=== PATIENT | female | born 2005 | race Two or more races ===

== ENCOUNTER 2024-09-09 22:07 | Emergency (ER) | payer OTHER ==
[~2024-09-09] VITALS: Ht 162.6 cm; Wt 132.4 kg
[2024-09-09] MEDS ORDERED: METOCLOPRAMIDE HCL 5 MG/ML VIAL IV STA (22:51)
[2024-09-09] MEDS ORDERED: 0.9 % SODIUM CHLORIDE 500 ML IV STA (22:51)
[2024-09-09] MEDS ORDERED: KETOROLAC TROMETHAMINE 30 MG VIAL IV STA (22:52)
[2024-09-09] MEDS ORDERED: METOCLOPRAMIDE HCL 5 MG/ML VIAL ONE (23:31)
[2024-09-09] MEDS ORDERED: KETOROLAC TROMETHAMINE 30 MG VIAL ONE (23:33)
== END 2024-09-10 01:46 | disposition home or self-care (01) ==
LOC: ER 22:10 → EMR PED 22:10
DX: G43.909 Migraine, unspecified, not intractable, without status migrainosus (principal)

== ENCOUNTER 2024-10-14 16:02 | Emergency (ER) | payer OTHER ==
[~2024-10-14] VITALS: Ht 162.6 cm; Wt 131.5 kg
== END 2024-10-15 01:23 | disposition home or self-care (01) ==
LOC: ER 16:05
DX: L72.0 Epidermal cyst (principal)

== ENCOUNTER 2025-07-31 15:53 | Emergency (ER) | payer OTHER ==
[~2025-07-31] VITALS: Ht 152.4 cm; Wt 136.1 kg
[2025-07-31 18:24] LABS: BASO % 0.3 % (0.1-1.2); EOS # 0.38 (0.04-0.54); EOS % 3.7 % (0.7-7.0); LYMPH # 1.75 (1.18-3.74); LYMPH % 16.9 % (19.3-53.1); MEAN PLATELET VOLUME 9.90 fl (9.4-12.4); MONO # 0.70 (0.24-0.82); MONO % 6.8 % (4.7-12.5); NEUT # 7.48 (1.56-6.13); NEUT % 72.1 % (34.0-71.1); RED CELL DISTRIBUTION WIDTH 12.8 % (11.6-14.4)
[2025-07-31 18:35] LABS: INR 0.98
[2025-07-31] MEDS ORDERED: PHENAZOPYRIDINE HCL 100 MG TABLET PO STA (18:47)
[2025-07-31] MEDS ORDERED: CEFTRIAXONE SODIUM 1,000 MG VIAL IM STA (18:47)
[2025-07-31 19:09] LABS: ALT/SGPT 21.0 U/L (12-78); AST/SGOT 12.0 U/L (15-37); BILIRUBIN TOTAL 0.63 mg/dL (0.3-1.2); BUN CREA RATIO 21.0 (7.0-25.0); CREATININE SERUM 0.7 mg/dL (0.55-1.02); GFR 106.68; GLOBULINA 3.7 G/DL (2.4-3.5); GLUCOSE FASTING 112.0 mg/dL (65-100); OSMOLALITY SERUM 287.0 MOSM/KG (275-295)
[2025-07-31] MEDS ORDERED: PHENAZOPYRIDINE HCL 100 MG TABLET PO ONE (20:00)
[2025-07-31] MEDS ORDERED: CEFTRIAXONE SODIUM 1,000 MG VIAL ONE (20:01)
[2025-07-31 20:38] LABS: URINE APPEARANCE Cloudy; URINE BILIRRUBIN Negative (NEGATIVE); URINE BLOOD Small; URINE COLOR Yellow; URINE GLUCOSE Negative (NEGATIVE); URINE KETONE Trace (NEGATIVE); URINE LEUKOCYTE Moderate; URINE NITRATE Negative; URINE PROTEIN 30 (NEGATIVE); URINE UROBILINOGEN 0.2 E.U./dl
[2025-07-31 20:46] LABS: URINE EPITHELIAL CELLS 38.1 uL (0.0-38.8); URINE RBC 94.0 uL (0.0-20.8)
[2025-07-31 20:59] LABS: URINE CAST 0.42 uL (0.0-1.40)
[2025-07-31 21:11] LABS: URINE CRYSTALS MODERATE /HPF; URINE MUCUS MODERATE
[2025-07-31 21:12] LABS: TYPE CELLS SQUAMOUS; URINE WBC 966.5 uL (0.0-23.2)
[2025-07-31] MEDS ORDERED: FLUCONAZOLE 100 MG TABLET PO STA (21:30)
[2025-07-31] MEDS ORDERED: PYRIDIUM DS200 MG PO (21:34)
[2025-07-31] MEDS ORDERED: CIPRO500 MG PO (21:34)
== END 2025-07-31 22:01 | disposition home or self-care (01) ==
LOC: EMR PED 15:54 → ER 15:54 → EMR PED 16:58
PROVIDERS: Physician Assistant Medical
DX: N39.0 Urinary tract infection, site not specified (principal); Z87.09 Personal history of other diseases of the respiratory system